=== PATIENT | female | born 1980 | race Two or more races ===

== ENCOUNTER 2021-07-03 06:53 | Day surgery (SDC) | payer OTHER | END 2021-07-03 15:05 | disposition home or self-care (01) | LOC: CIR.AMB 06:53 | PROVIDERS: ATTEND Surgery | DX: N62 Hypertrophy of breast (principal); N60.11 Diffuse cystic mastopathy of right breast; Z91.013 Allergy to seafood; Z20.822 Contact with and (suspected) exposure to COVID-19 ==